=== PATIENT | female | born 1990 | race African-American/Black ===

== ENCOUNTER 2024-12-08 03:04 | Emergency (ER) | payer MEDICAID ==
[~2024-12-08] VITALS: Ht 167.6 cm; Wt 93.0 kg
[2024-12-08 03:14] VITALS: O2SAT 100
[2024-12-08] MEDS: CEFTRIAXONE SODIUM 500MG VIAL IM ONE (04:15)
[2024-12-08] MEDS: DOXYCYCLINE HYCLATE 100MG CAPSULE PO ONE (04:15)
[2024-12-08] MEDS ORDERED: DOXY100T28 MT (04:42)
[2024-12-08] MEDS ORDERED: METR-167 MT (04:42)
[2024-12-08 05:11] VITALS: BP 134/87; PULSE 79; RESP 18; TEMP 36.6; O2SAT 100
[2024-12-10 04:10] LABS: CHLAMYDIA TRACHOMATIS NAA Negative (Negative); NEISSERIA GONORRHOEAE NAA Negative (Negative)
== END 2024-12-08 05:13 | disposition home or self-care (01) ==
LOC: ER 03:04
DX: N76.0 Acute vaginitis (principal)
CPT/HCPCS: 87491; 87591; 81025; 87210; 96372; 99284; J0696; Z7610 ×3